=== PATIENT | female | born 1975 | race Caucasian/White ===

== ENCOUNTER 2018-01-13 10:40 | Outpatient (CLI) | payer MEDICAID ==
[2018-01-13 12:32] LABS: ADD UMIC YES; UR AMORPHOUS CRYSTAL FEW /HPF (NONE SEEN); UR ASCORBIC ACID NEGATIVE (NEGATIVE); UR BACTERIA FEW /HPF (NONE SEEN); UR BILIRUBIN (Dip) NEGATIVE (NEGATIVE); UR BLOOD (Dip) NEGATIVE (NEGATIVE); UR CLARITY SLIGHTLY CLOUDY (CLEAR); UR COLOR YELLOW (YELLOW); UR GLUCOSE (Dip) NEGATIVE (NEGATIVE); UR KETONES (Dip) NEGATIVE (NEGATIVE); UR LEUKOCYTE ESTERASE (Dip) 3+ Leu/ul (NEGATIVE); UR NITRITE (Dip) NEGATIVE (NEGATIVE); UR RBC 9 /HPF (0-5); UR SPECIFIC GRAVITY (Dip) 1.008 (1.003-1.030); UR SQUAMOUS EPITHELIAL CELL FEW /HPF (FEW); UR TOTAL PROTEIN (Dip) NEGATIVE (NEGATIVE); UR UROBILINOGEN (Dip) NEGATIVE (NEGATIVE); UR WBC 7 /HPF (0-5)
== END 2018-01-13 13:35 | disposition home or self-care (01) ==
LOC: OBT 10:40 → L-D 10:42 → OBT 13:35
DX: O23.43 Unspecified infection of urinary tract in pregnancy, third trimester (principal); Z3A.33 33 weeks gestation of pregnancy
CPT/HCPCS: 76817; 81001

== ENCOUNTER 2018-02-09 13:12 | Inpatient (IN) | payer MEDICAID ==
[2018-02-09] MEDS: LACTATED RINGER'S 1,000 ML IV ×2 (15:14→23:41)
[2018-02-09] MEDS ORDERED: ONDANSETRON 4 MG INJ IV (18:30)
[2018-02-09] MEDS ORDERED: MEPERIDINE 25 MG INJ IV (18:30)
[2018-02-09] MEDS ORDERED: TERBUTALINE 1 ML (20:01)
[2018-02-09] MEDS: TERBUTALINE 1 MG/ML INJ SC (22:32)
[2018-02-09] MEDS: metFORMIN 500 MG TAB PO (22:32)
[2018-02-09 23:44] LABS: ADD MAN DIFF? NO
[2018-02-09 23:46] LABS: BASOPHILS % 0.3 % (0.0-2.0); EOSINOPHILS % 0.4 % (0.0-7.0); HEMATOCRIT 33.4 % (37.0-47.0); HEMOGLOBIN 11.7 g/dl (12.0-16.0); LYMPHOCYTES # 1.3 10^3/ul (0.8-2.9); LYMPHOCYTES % 17.7 % (15.0-51.0); MEAN CORPUSCULAR HEMOGLOBIN 32.8 pg (29.0-33.0); MEAN CORPUSCULAR VOLUME 93.6 fl (82.0-101.0); MONOCYTE # 0.4 10^3/ul (0.3-0.9); MONOCYTES % 4.9 % (0.0-11.0); NEUTROPHIL # 5.7 10^3/ul (1.6-7.5); NEUTROPHILS % 75.9 % (39.0-77.0); PLATELET COUNT 186 10^3/UL (140-415); RED BLOOD COUNT 3.57 10^6/ul (4.20-5.40); RED CELL DISTRIBUTION WIDTH 12.4 % (11.5-14.5)
[2018-02-09 23:46] LABS: WHITE BLOOD COUNT 7.6 10^3/ul (4.8-10.8)
[2018-02-10 00:13] LABS: GLUCOSE 144 mg/dl (70-220)
[2018-02-10 00:26] LABS: INR 0.99; PARTIAL THROMBOPLASTIN TIME 24.1 Sec (25.0-35.0); PROTIME 13.2 Sec (11.9-14.9)
[2018-02-10 00:44] LABS: HEPATITIS B SURFACE ANTIGEN NEGATIVE (NEGATIVE)
[2018-02-10] MEDS: LACTATED RINGER'S 1,000 ML IV ×5 (06:59→19:51)
[2018-02-10] MEDS ORDERED: CEFAZOLIN 2 GM/50 ML (PMX) 50 ML IVPB (08:30)
[2018-02-10] MEDS: LACTATED RINGER'S 500 ML IV (13:55)
[2018-02-10] MEDS ORDERED: BUPIVACAINE 0.75%/DEXT (SPINAL) 2 ML INJ (14:39)
[2018-02-10] MEDS ORDERED: PHENYLephrine (100 MCG/ML) 5ML SYG ×3 (14:39→16:11)
[2018-02-10] MEDS ORDERED: morphine SULFATE/PF (10 MG/10 ML) INJ (14:39)
[2018-02-10] MEDS ORDERED: FENTAnyl 50 MCG/ML VIAL (14:39)
[2018-02-10] MEDS: CEFAZOLIN 2 GM/50 ML (PMX) 50 ML IVPB ×3 (14:41→21:57)
[2018-02-10 14:58] LABS: RAPID PLASMA REAGIN NONREACTIVE (NR)
[2018-02-10] MEDS ORDERED: DEXAMETHASONE 4 MG/ML 1 ML INJ (15:00)
[2018-02-10] MEDS ORDERED: FAMOTIDINE 20 MG INJ (15:00)
[2018-02-10] MEDS ORDERED: OXYTOCIN 30 UNITS/LR 500 ML IV ×2 (15:13→18:30)
[2018-02-10] MEDS ORDERED: ZOLPIDEM 5 MG TAB PO (16:00)
[2018-02-10] MEDS ORDERED: ONDANSETRON 4 MG INJ IV (16:00)
[2018-02-10] MEDS ORDERED: NALOXONE (0.4 MG/ML) INJ IV (16:00)
[2018-02-10] MEDS ORDERED: HYDROmorphONE 0.5 MG/0.5 ML SYG IV ×4 (16:00→23:30)
[2018-02-10] MEDS ORDERED: NORepinephrine 4 MG INJ (18:36)
[2018-02-10 18:50] LABS: ADD MAN DIFF? NO
[2018-02-10 18:53] LABS: BASOPHILS % 0.2 % (0.0-2.0); EOSINOPHILS % 0.2 % (0.0-7.0); HEMATOCRIT 30.9 % (37.0-47.0); HEMOGLOBIN 10.4 g/dl (12.0-16.0); LYMPHOCYTES # 1.6 10^3/ul (0.8-2.9); LYMPHOCYTES % 8.8 % (15.0-51.0); MEAN CORPUSCULAR HGB CONC 33.7 g/dl (32.0-37.0); MEAN CORPUSCULAR VOLUME 98.1 fl (82.0-101.0); MEAN PLATELET VOLUME 11.7 fl (7.4-10.4); MONOCYTE # 0.3 10^3/ul (0.3-0.9); MONOCYTES % 1.6 % (0.0-11.0); NEUTROPHIL # 16.3 10^3/ul (1.6-7.5); NEUTROPHILS % 88.2 % (39.0-77.0); PLATELET COUNT 236 10^3/UL (140-415); RED BLOOD COUNT 3.15 10^6/ul (4.20-5.40); RED CELL DISTRIBUTION WIDTH 12.9 % (11.5-14.5)
[2018-02-10 18:53] LABS: WHITE BLOOD COUNT 18.5 10^3/ul (4.8-10.8)
[2018-02-10] MEDS: OXYTOCIN 30 UNITS/LR 500 ML IV (19:08)
[2018-02-10 19:12] LABS: ALANINE AMINOTRANSFERASE 38 IU/L (13-69); ALBUMIN 2.9 g/dl (3.3-4.9); ALKALINE PHOSPHATASE 151 IU/L (42-121); ANION GAP 16 (8-16); ASPARTATE AMINO TRANSFERASE 34 IU/L (15-46); BILIRUBIN,INDIRECT 0.4 mg/dl (0-1.1); BILIRUBIN,TOTAL 0.4 mg/dl (0.2-1.3); BLOOD UREA NITROGEN 7 mg/dl (7-20); CALCIUM 8.2 mg/dl (8.4-10.2); CARBON DIOXIDE 17 mmol/L (21-31); CHLORIDE 106 mmol/L (97-110); CREATININE 0.73 mg/dl (0.44-1.00); GLUCOSE 210 mg/dl (70-220); POTASSIUM 3.9 mmol/L (3.5-5.1); SODIUM 135 mmol/L (135-144); TOTAL PROTEIN 5.8 g/dl (6.1-8.1)
[2018-02-10] MEDS: KETOROLAC 30 MG INJ IV (19:52)
[2018-02-10] MEDS: IOHEXOL 100 ML (20:39)
[2018-02-10] MEDS: SOD CHLORIDE 0.9% 100 ML (21:04)
[2018-02-10] MEDS: IOHEXOL 350MG/ML 50 ML BTL (21:11)
[2018-02-10 21:22] LABS: HEMATOCRIT 23.1 % (37.0-47.0); HEMOGLOBIN 7.8 g/dl (12.0-16.0)
[2018-02-10] MEDS ORDERED: LIDOCAINE 1% (MDV) 20 ML INJ (21:59)
[2018-02-10] MEDS ORDERED: MIDAZOLAM 1 MG/ML 2 ML INJ (21:59)
[2018-02-10] MEDS ORDERED: SUCCINYLCHOLINE CHLORIDE 100 MG/5 ML SYG IV (21:59)
[2018-02-10] MEDS ORDERED: ETOMIDATE 20 MG INJ (21:59)
[2018-02-10 22:14] LABS: IMMEDIATE SPIN CROSSMATCH 1
[2018-02-10 22:34] LABS: INR 1.04; PROTIME 13.7 Sec (11.9-14.9); PT RATIO 1.1
[2018-02-10 22:35] LABS: PARTIAL THROMBOPLASTIN TIME 22.9 Sec (25.0-35.0)
[2018-02-10 22:50] LABS: IMMEDIATE SPIN CROSSMATCH 1 6
[2018-02-10] MEDS ORDERED: METHYLERGONOVINE 0.2 MG INJ (22:54)
[2018-02-10] MEDS: METHYLERGONOVINE 0.2 MG INJ IM (23:03)
[2018-02-10] MEDS ORDERED: FUROSEMIDE 20 MG INJ (23:04)
[2018-02-10 23:24] LABS: HIV 1&2 ANTIBODY NEGATIVE (NEGATIVE)
[2018-02-10 23:32] LABS: HEPATITIS C VIRAL ANTIBODY NEGATIVE (NEGATIVE)
[2018-02-11] MEDS ORDERED: METOCLOPRAMIDE 10 MG INJ (00:02)
[2018-02-11] MEDS ORDERED: SUGAMMADEX SODIUM 200 MG/2 ML VIAL IV (00:02)
[2018-02-11 00:10] LABS: ADD MAN DIFF? NO
[2018-02-11 00:15] LABS: ABNORMAL IP MESSAGE 1; BASOPHILS % 0.1 % (0.0-2.0); HEMATOCRIT 33.9 % (37.0-47.0); HEMOGLOBIN 11.4 g/dl (12.0-16.0); LYMPHOCYTES # 0.4 10^3/ul (0.8-2.9); LYMPHOCYTES % 2.9 % (15.0-51.0); MEAN CORPUSCULAR HEMOGLOBIN 31.5 pg (29.0-33.0); MEAN CORPUSCULAR HGB CONC 33.6 g/dl (32.0-37.0); MEAN CORPUSCULAR VOLUME 93.6 fl (82.0-101.0); MEAN PLATELET VOLUME 12.4 fl (7.4-10.4); MONOCYTE # 0.6 10^3/ul (0.3-0.9); MONOCYTES % 4.1 % (0.0-11.0); NEUTROPHIL # 12.9 10^3/ul (1.6-7.5); NEUTROPHILS % 92.3 % (39.0-77.0); RED BLOOD COUNT 3.62 10^6/ul (4.20-5.40); RED CELL DISTRIBUTION WIDTH 13.5 % (11.5-14.5)
[2018-02-11 00:30] LABS: PLATELET COUNT 122 10^3/UL (140-415)
[2018-02-11 00:31] LABS: POSITIVE DIFF @See below
[2018-02-11 00:34] LABS: INR 0.94; PROTIME 12.7 Sec (11.9-14.9)
[2018-02-11] MEDS: VANCOMYCIN 1 GM (PMX) 250 ML IVPB (01:15)
[2018-02-11 06:34] LABS: ADD MAN DIFF? NO
[2018-02-11 06:42] LABS: WHITE BLOOD COUNT 11.3 10^3/ul (4.8-10.8)
[2018-02-11 06:42] LABS: BASOPHILS % 0.1 % (0.0-2.0); HEMATOCRIT 30.3 % (37.0-47.0); HEMOGLOBIN 10.5 g/dl (12.0-16.0); LYMPHOCYTES # 0.8 10^3/ul (0.8-2.9); MEAN CORPUSCULAR HEMOGLOBIN 31.7 pg (29.0-33.0); MEAN CORPUSCULAR HGB CONC 34.7 g/dl (32.0-37.0); MEAN CORPUSCULAR VOLUME 91.5 fl (82.0-101.0); MEAN PLATELET VOLUME 11.6 fl (7.4-10.4); MONOCYTE # 0.6 10^3/ul (0.3-0.9); MONOCYTES % 5.7 % (0.0-11.0); NEUTROPHIL # 9.8 10^3/ul (1.6-7.5); NEUTROPHILS % 86.8 % (39.0-77.0); PLATELET COUNT 145 10^3/UL (140-415); RED BLOOD COUNT 3.31 10^6/ul (4.20-5.40); RED CELL DISTRIBUTION WIDTH 14.1 % (11.5-14.5)
[2018-02-11 06:57] LABS: ANION GAP 13 (8-16); BLOOD UREA NITROGEN 7 mg/dl (7-20); CALCIUM 8.9 mg/dl (8.4-10.2); CARBON DIOXIDE 26 mmol/L (21-31); CHLORIDE 103 mmol/L (97-110); CREATININE 0.73 mg/dl (0.44-1.00); GLUCOSE 124 mg/dl (70-220); POTASSIUM 4.5 mmol/L (3.5-5.1); SODIUM 137 mmol/L (135-144)
[2018-02-11] MEDS: KETOROLAC 30 MG INJ IV (08:20)
[2018-02-11] MEDS: LACTATED RINGER'S 1,000 ML IV ×3 (11:07→18:53)
[2018-02-11 16:29] LABS: HEMATOCRIT 27.2 % (37.0-47.0); HEMOGLOBIN 9.3 g/dl (12.0-16.0)
[2018-02-11] MEDS: HYDROCODONE/APAP (5/325) TAB PO (16:48)
[2018-02-11] MEDS ORDERED: HYDROCODONE/APAP (5/325) TAB PO (18:30)
[2018-02-11] MEDS: BISACODYL 10 MG SUPP PR ×2 (18:30→19:04)
[2018-02-11] MEDS ORDERED: KETOROLAC 30 MG INJ IV (18:30)
[2018-02-11] MEDS ORDERED: SENNA TAB PO (18:30)
[2018-02-11] MEDS ORDERED: MAGNESIUM HYDROXIDE 30ML CUP PO (18:30)
[2018-02-11] MEDS ORDERED: IBUPROFEN 600 MG TAB PO (18:30)
[2018-02-11] MEDS ORDERED: METOCLOPRAMIDE 10 MG INJ IV (18:30)
[2018-02-11] MEDS ORDERED: MISOPROSTOL 200 MCG TAB PR (18:30)
[2018-02-11] MEDS ORDERED: CARBOPROST 250 MCG INJ IM (18:30)
[2018-02-11] MEDS ORDERED: ACETAMINOPHEN (10 MG/ML) IV SYG IV* (18:30)
[2018-02-11] MEDS ORDERED: METHYLERGONOVINE 0.2 MG INJ IM (18:30)
[2018-02-11] MEDS ORDERED: OXYTOCIN 30 UNITS/LR 500 ML IV (18:30)
[2018-02-11] MEDS: KETOROLAC 60 MG INJ IM (18:41)
[2018-02-11] MEDS: FAMOTIDINE 20 MG INJ IV (18:48)
[2018-02-11 19:00] LABS: ADD MAN DIFF? NO
[2018-02-11] MEDS ORDERED: ACETAMINOPHEN 1000MG/100ML IV 100 ML IVPB (19:00)
[2018-02-11] MEDS ORDERED: GLUCAGON 1 MG INJ IM (19:00)
[2018-02-11] MEDS ORDERED: GLUCOSE GEL 15 GRAM TUBE PO ×2 (19:00)
[2018-02-11] MEDS ORDERED: DEXTROSE 50% 50 ML SYRINGE IV ×2 (19:00)
[2018-02-11] MEDS ORDERED: GLUCOSE GEL 15 GRAM TUBE BUCCAL (19:00)
[2018-02-11 19:02] LABS: EOSINOPHILS # 0.1 10^3/ul (0.0-0.5); HEMATOCRIT 24.3 % (37.0-47.0); HEMOGLOBIN 8.5 g/dl (12.0-16.0); LYMPHOCYTES # 1.1 10^3/ul (0.8-2.9); MEAN CORPUSCULAR HEMOGLOBIN 31.7 pg (29.0-33.0); MEAN CORPUSCULAR VOLUME 90.7 fl (82.0-101.0); MEAN PLATELET VOLUME 10.7 fl (7.4-10.4); MONOCYTE # 0.5 10^3/ul (0.3-0.9); MONOCYTES % 4.8 % (0.0-11.0); NEUTROPHIL # 7.8 10^3/ul (1.6-7.5); NEUTROPHILS % 81.8 % (39.0-77.0); PLATELET COUNT 142 10^3/UL (140-415); RED BLOOD COUNT 2.68 10^6/ul (4.20-5.40); RED CELL DISTRIBUTION WIDTH 14.8 % (11.5-14.5)
[2018-02-11 19:02] LABS: WHITE BLOOD COUNT 9.5 10^3/ul (4.8-10.8)
[2018-02-11 19:19] LABS: ALANINE AMINOTRANSFERASE 34 IU/L (13-69); ALBUMIN 2.6 g/dl (3.3-4.9); ALKALINE PHOSPHATASE 100 IU/L (42-121); ANION GAP 10 (8-16); ASPARTATE AMINO TRANSFERASE 39 IU/L (15-46); BILIRUBIN,INDIRECT 0.6 mg/dl (0-1.1); BILIRUBIN,TOTAL 0.6 mg/dl (0.2-1.3); BLOOD UREA NITROGEN 6 mg/dl (7-20); CALCIUM 8.3 mg/dl (8.4-10.2); CARBON DIOXIDE 26 mmol/L (21-31); CHLORIDE 105 mmol/L (97-110); CREATININE 0.67 mg/dl (0.44-1.00); GLUCOSE 102 mg/dl (70-220); POTASSIUM 3.6 mmol/L (3.5-5.1); SODIUM 137 mmol/L (135-144); TOTAL PROTEIN 5.2 g/dl (6.1-8.1)
[2018-02-11] MEDS ORDERED: CIPROFLOXACIN 400MG/D5W 200 ML IVPB (19:30)
[2018-02-11] MEDS: metFORMIN (XR) 500 MG TAB PO (19:31)
[2018-02-11] MEDS: CLINDAMYCIN 300 MG CAP PO (19:31)
[2018-02-11] MEDS: ACCU-CHEK XX (19:33)
[2018-02-11] MEDS: CIPROFLOXACIN 400MG/D5W 200 ML IVPB (20:50)
[2018-02-11] MEDS: CEFAZOLIN 2 GM/50 ML (PMX) 50 ML IVPB (22:23)
[2018-02-12] MEDS: OXYCODONE/ACETAMINOPHEN (5/325) TAB PO (00:09)
[2018-02-12] MEDS: CLINDAMYCIN 300 MG CAP PO ×3 (00:09→11:20)
[2018-02-12] MEDS: LACTATED RINGER'S 1,000 ML IV ×5 (02:14→13:08)
[2018-02-12 05:36] LABS: ADD MAN DIFF? NO
[2018-02-12] MEDS: ACCU-CHEK XX ×2 (06:29→09:35)
[2018-02-12] MEDS: CEFAZOLIN 2 GM/50 ML (PMX) 50 ML IVPB ×4 (06:29→22:32)
[2018-02-12 06:59] LABS: WHITE BLOOD COUNT 10.6 10^3/ul (4.8-10.8)
[2018-02-12 06:59] LABS: BASOPHILS % 0.2 % (0.0-2.0); EOSINOPHILS # 0.2 10^3/ul (0.0-0.5); EOSINOPHILS % 1.7 % (0.0-7.0); HEMATOCRIT 23.6 % (37.0-47.0); LYMPHOCYTES # 1.2 10^3/ul (0.8-2.9); LYMPHOCYTES % 11.3 % (15.0-51.0); MEAN CORPUSCULAR HEMOGLOBIN 31.5 pg (29.0-33.0); MEAN CORPUSCULAR HGB CONC 33.9 g/dl (32.0-37.0); MEAN CORPUSCULAR VOLUME 92.9 fl (82.0-101.0); MEAN PLATELET VOLUME 11.4 fl (7.4-10.4); MONOCYTE # 0.5 10^3/ul (0.3-0.9); MONOCYTES % 4.5 % (0.0-11.0); NEUTROPHIL # 8.7 10^3/ul (1.6-7.5); NEUTROPHILS % 81.8 % (39.0-77.0); PLATELET COUNT 148 10^3/UL (140-415); RED BLOOD COUNT 2.54 10^6/ul (4.20-5.40); RED CELL DISTRIBUTION WIDTH 14.8 % (11.5-14.5)
[2018-02-12] MEDS: CIPROFLOXACIN 400MG/D5W 200 ML IVPB ×2 (08:50→21:01)
[2018-02-12] MEDS: metFORMIN (XR) 500 MG TAB PO (08:50)
[2018-02-12] MEDS: FAMOTIDINE 20 MG INJ IV (08:50)
[2018-02-12] MEDS ORDERED: BISACODYL 10 MG SUPP PR (10:30)
[2018-02-12] MEDS ORDERED: HYDROCODONE/APAP (5/325) TAB PO ×2 (13:30→18:30)
[2018-02-12] MEDS ORDERED: MISOPROSTOL 200 MCG TAB PR (13:30)
[2018-02-12] MEDS: BISACODYL 10 MG SUPP PR (13:41)
[2018-02-12] MEDS: metroNIDAZOLE 500 MG TAB PO ×2 (13:47→22:32)
[2018-02-12] MEDS: IBUPROFEN 800 MG TAB PO ×2 (14:48→22:32)
[2018-02-12] MEDS ORDERED: CIPROFLOXACIN 400MG/D5W 200 ML IVPB (15:00)
[2018-02-12] MEDS: SENNA/DOCUSATE NA (8.6MG/50MG) TAB PO (21:01)
[2018-02-13] MEDS: IBUPROFEN 800 MG TAB PO ×3 (05:32→21:55)
[2018-02-13] MEDS: CEFAZOLIN 2 GM/50 ML (PMX) 50 ML IVPB (05:32)
[2018-02-13] MEDS: metroNIDAZOLE 500 MG TAB PO ×3 (05:32→21:55)
[2018-02-13] MEDS: ACCU-CHEK XX (07:00)
[2018-02-13] MEDS: SENNA/DOCUSATE NA (8.6MG/50MG) TAB PO ×2 (08:33→20:33)
[2018-02-13] MEDS: CIPROFLOXACIN 400MG/D5W 200 ML IVPB ×2 (08:33→20:33)
[2018-02-13] MEDS ORDERED: DIPHTH/TET/ACEL PERTUSS (ADULT) 0.5 ML VIAL IM* (09:00)
[2018-02-13 11:27] LABS: ADD MAN DIFF? NO
[2018-02-13 11:34] LABS: WHITE BLOOD COUNT 11.4 10^3/ul (4.8-10.8)
[2018-02-13 11:34] LABS: BASOPHILS % 0.1 % (0.0-2.0); EOSINOPHILS # 0.1 10^3/ul (0.0-0.5); EOSINOPHILS % 1.2 % (0.0-7.0); HEMATOCRIT 24.2 % (37.0-47.0); HEMOGLOBIN 8.1 g/dl (12.0-16.0); LYMPHOCYTES % 8.9 % (15.0-51.0); MEAN CORPUSCULAR HEMOGLOBIN 31.5 pg (29.0-33.0); MEAN CORPUSCULAR HGB CONC 33.5 g/dl (32.0-37.0); MEAN CORPUSCULAR VOLUME 94.2 fl (82.0-101.0); MEAN PLATELET VOLUME 10.4 fl (7.4-10.4); MONOCYTE # 0.5 10^3/ul (0.3-0.9); MONOCYTES % 4.8 % (0.0-11.0); NEUTROPHIL # 9.5 10^3/ul (1.6-7.5); NEUTROPHILS % 83.2 % (39.0-77.0); PLATELET COUNT 194 10^3/UL (140-415); RED BLOOD COUNT 2.57 10^6/ul (4.20-5.40); RED CELL DISTRIBUTION WIDTH 14.6 % (11.5-14.5)
[2018-02-13] MEDS ORDERED: DEXTROSE 50% 50 ML SYRINGE IV ×2 (15:00)
[2018-02-13] MEDS ORDERED: GLUCOSE GEL 15 GRAM TUBE BUCCAL (15:00)
[2018-02-13] MEDS ORDERED: GLUCOSE GEL 15 GRAM TUBE PO ×2 (15:00)
[2018-02-13] MEDS ORDERED: GLUCAGON 1 MG INJ IM (15:00)
[2018-02-13] MEDS: NA PHOSPHATE/BIPHOS 133 ML ENEMA PR (18:01)
[2018-02-13] MEDS: LANOLIN 7 GM TUBE TOP (18:01)
[2018-02-13] MEDS: metFORMIN (XR) 500 MG TAB PO (18:03)
[2018-02-13] MEDS ORDERED: metFORMIN (XR) 500 MG TAB PO (21:00)
[2018-02-14] MEDS: OXYCODONE/ACETAMINOPHEN (5/325) TAB PO (01:15)
[2018-02-14] MEDS: metroNIDAZOLE 500 MG TAB PO ×3 (05:38→21:58)
[2018-02-14] MEDS: IBUPROFEN 800 MG TAB PO ×3 (05:38→21:58)
[2018-02-14] MEDS: ACCU-CHEK XX ×4 (08:16→20:05)
[2018-02-14] MEDS: SENNA/DOCUSATE NA (8.6MG/50MG) TAB PO ×2 (08:32→21:00)
[2018-02-14] MEDS: metFORMIN (XR) 500 MG TAB PO ×2 (08:32→17:47)
[2018-02-14] MEDS: CIPROFLOXACIN 400MG/D5W 200 ML IVPB ×2 (09:08→21:00)
[2018-02-14 15:00] LABS: ADD MAN DIFF? NO
[2018-02-14 15:09] LABS: BASOPHILS % 0.3 % (0.0-2.0); EOSINOPHILS # 0.3 10^3/ul (0.0-0.5); EOSINOPHILS % 3.2 % (0.0-7.0); HEMATOCRIT 25.2 % (37.0-47.0); HEMOGLOBIN 8.5 g/dl (12.0-16.0); LYMPHOCYTES % 9.5 % (15.0-51.0); MEAN CORPUSCULAR HEMOGLOBIN 32.2 pg (29.0-33.0); MEAN CORPUSCULAR HGB CONC 33.7 g/dl (32.0-37.0); MEAN CORPUSCULAR VOLUME 95.5 fl (82.0-101.0); MEAN PLATELET VOLUME 9.9 fl (7.4-10.4); MONOCYTE # 0.5 10^3/ul (0.3-0.9); MONOCYTES % 4.6 % (0.0-11.0); NEUTROPHIL # 8.1 10^3/ul (1.6-7.5); NEUTROPHILS % 80.1 % (39.0-77.0); PLATELET COUNT 263 10^3/UL (140-415); RED BLOOD COUNT 2.64 10^6/ul (4.20-5.40); RED CELL DISTRIBUTION WIDTH 14.5 % (11.5-14.5)
[2018-02-14 15:09] LABS: WHITE BLOOD COUNT 10.2 10^3/ul (4.8-10.8)
[2018-02-14] MEDS ORDERED: VITAMIN A & D 5 GM OINT PACKET TOP (18:23)
[2018-02-14] MEDS: TRIMETHOPRIM/SULFAMETHOX (DS) TAB PO (21:58)
[2018-02-14] MEDS ORDERED: metroNIDAZOLE 500 MG TAB PO (22:00)
[2018-02-15] MEDS: metroNIDAZOLE 500 MG TAB PO ×2 (06:00→14:13)
[2018-02-15] MEDS: IBUPROFEN 800 MG TAB PO ×2 (06:00→14:13)
[2018-02-15] MEDS: CIPROFLOXACIN 500 MG TAB PO ×2 (06:00→18:20)
[2018-02-15] MEDS: DIPHTH/TET/ACEL PERTUSS (ADULT) 0.5 ML VIAL IM* (08:26)
[2018-02-15] MEDS: TRIMETHOPRIM/SULFAMETHOX (DS) TAB PO (08:59)
[2018-02-15] MEDS: metFORMIN (XR) 500 MG TAB PO ×2 (08:59→18:20)
[2018-02-15] MEDS: SENNA/DOCUSATE NA (8.6MG/50MG) TAB PO (08:59)
[2018-02-15 11:49] LABS: ADD MAN DIFF? NO
[2018-02-15 11:51] LABS: BASOPHILS % 0.2 % (0.0-2.0); EOSINOPHILS # 0.2 10^3/ul (0.0-0.5); EOSINOPHILS % 1.9 % (0.0-7.0); HEMATOCRIT 23.9 % (37.0-47.0); HEMOGLOBIN 7.9 g/dl (12.0-16.0); LYMPHOCYTES # 0.9 10^3/ul (0.8-2.9); LYMPHOCYTES % 9.6 % (15.0-51.0); MEAN CORPUSCULAR HEMOGLOBIN 31.2 pg (29.0-33.0); MEAN CORPUSCULAR HGB CONC 33.1 g/dl (32.0-37.0); MEAN CORPUSCULAR VOLUME 94.5 fl (82.0-101.0); MEAN PLATELET VOLUME 9.8 fl (7.4-10.4); MONOCYTE # 0.5 10^3/ul (0.3-0.9); MONOCYTES % 5.1 % (0.0-11.0); NEUTROPHIL # 7.6 10^3/ul (1.6-7.5); NEUTROPHILS % 79.9 % (39.0-77.0); PLATELET COUNT 266 10^3/UL (140-415); RED BLOOD COUNT 2.53 10^6/ul (4.20-5.40); RED CELL DISTRIBUTION WIDTH 14.3 % (11.5-14.5)
[2018-02-15 11:51] LABS: WHITE BLOOD COUNT 9.5 10^3/ul (4.8-10.8)
== END 2018-02-15 19:00 | disposition home or self-care (01) | DRG 765 ==
LOC: OBT 13:12 → ICU 02-11 00:40 → PP1 02-12 14:29 → L-D 13:13 → OBT 18:20 → L-D 02-10 22:19
PROVIDERS: Obstetrics & Gynecology
PROC: 10D00Z1 Extraction of Products of Conception, Low, Open Approach (ICD-10-PCS; principal; 2018-02-10 15:30)
PROC: 0UL70ZZ Occlusion of Bilateral Fallopian Tubes, Open Approach (ICD-10-PCS; 2018-02-10 15:30)
DX: O34.211 Maternal care for low transverse scar from previous cesarean delivery (principal); O72.2 Delayed and secondary postpartum hemorrhage; O24.429 Gestational diabetes mellitus in childbirth, unspecified control; Z30.2 Encounter for sterilization; Z3A.37 37 weeks gestation of pregnancy; Z37.0 Single live birth
CPT/HCPCS: 36430; 71045; 75635; 80048; 80053; 82947; 82962; 85014; 85018; 85025; 85610; 85730; 86592; 86703; 86803; 86850; 86900; 86901; 86920; 87340; 88302; 93005; 99464

== ENCOUNTER 2018-11-18 15:28 | Inpatient (IN) | payer MEDICAID ==
[2018-11-18] MEDS: ASPIRIN 325 MG TAB PO (16:13)
[2018-11-18] MEDS: SOD CHLORIDE 0.9% 1,000 ML IV ×2 (16:13→17:56)
[2018-11-18 16:28] LABS: ADD MAN DIFF? NO
[2018-11-18 16:32] LABS: BASOPHILS % 0.4 % (0.0-2.0); EOSINOPHILS # 0.4 10^3/ul (0.0-0.5); EOSINOPHILS % 4.7 % (0.0-7.0); HEMATOCRIT 38.7 % (37.0-47.0); LYMPHOCYTES # 2.7 10^3/ul (0.8-2.9); LYMPHOCYTES % 31.3 % (15.0-51.0); MEAN CORPUSCULAR HGB CONC 33.6 g/dl (32.0-37.0); MEAN CORPUSCULAR VOLUME 92.4 fl (82.0-101.0); MEAN PLATELET VOLUME 10.7 fl (7.4-10.4); MONOCYTE # 0.6 10^3/ul (0.3-0.9); NEUTROPHIL # 4.8 10^3/ul (1.6-7.5); NEUTROPHILS % 56.2 % (39.0-77.0); PLATELET COUNT 292 10^3/UL (140-415); RED BLOOD COUNT 4.19 10^6/ul (4.20-5.40); RED CELL DISTRIBUTION WIDTH 12.5 % (11.5-14.5)
[2018-11-18 16:32] LABS: WHITE BLOOD COUNT 8.5 10^3/ul (4.8-10.8)
[2018-11-18 16:49] LABS: ALANINE AMINOTRANSFERASE 25 IU/L (13-69); ALBUMIN 4.2 g/dl (3.3-4.9); ALBUMIN/GLOBULIN RATIO 1.16; ALKALINE PHOSPHATASE 83 IU/L (42-121); ANION GAP 5 (5-13); ASPARTATE AMINO TRANSFERASE 26 IU/L (15-46); BILIRUBIN,INDIRECT 0.1 mg/dl (0-1.1); BILIRUBIN,TOTAL 0.1 mg/dl (0.2-1.3); BLOOD UREA NITROGEN 12 mg/dl (7-20); CALCIUM 9.1 mg/dl (8.4-10.2); CARBON DIOXIDE 26 mmol/L (21-31); CHLORIDE 110 mmol/L (97-110); CHOL/HDL RATIO 3.9 RATIO; CHOLESTEROL 193 mg/dl (100-200); CREATININE 0.81 mg/dl (0.44-1.00); Estimated GFR > 60 mL/min (>60); GLUCOSE 111 mg/dl (70-220); HDL CHOLESTEROL 49 mg/dl (34-88); LDL CHOLESTEROL,CALCULATED 94 mg/dl; POTASSIUM 3.7 mmol/L (3.5-5.1); SODIUM 141 mmol/L (135-144); TOTAL PROTEIN 7.8 g/dl (6.1-8.1); TRIGLYCERIDES 249 mg/dl (0-149)
[2018-11-18 16:54] LABS: INR 0.87; PROTIME 11.9 Sec (11.9-14.9); PT RATIO 0.9
[2018-11-18 17:00] LABS: TROPONIN-I < 0.012 ng/ml (0.000-0.120)
[2018-11-18] MEDS: IOHEXOL 100 ML (17:11)
[2018-11-18] MEDS: SOD CHLORIDE 0.9% 100 ML (17:11)
[2018-11-18 17:13] LABS: HEMOGLOBIN A1C 5.3 % (0-5.9)
[2018-11-18] MEDS ORDERED: ONDANSETRON 4 MG INJ IV ×2 (18:00→18:30)
[2018-11-18] MEDS ORDERED: ACETAMINOPHEN 325 MG TAB PO (18:00)
[2018-11-18] MEDS ORDERED: DEXTROSE 5%-0.45% NACL 1,000 ML IV (18:02)
[2018-11-18] MEDS ORDERED: NACL 0.9% 3 ML SYG IV (18:30)
[2018-11-18] MEDS ORDERED: MAGNESIUM HYDROXIDE 30ML CUP PO (18:30)
[2018-11-18] MEDS ORDERED: DOCUSATE SODIUM 100 MG CAP PO (18:30)
[2018-11-18] MEDS: METOCLOPRAMIDE 10 MG INJ IV (18:31)
[2018-11-18] MEDS: HYDROmorphONE 1 MG/ML SYG IV (18:32)
[2018-11-18] MEDS: DIPHENHYDRAMINE 50 MG INJ IV (18:32)
[2018-11-18] MEDS ORDERED: LORAZEPAM 2 MG INJ IV (19:00)
[2018-11-18] MEDS: predniSONE 20 MG TAB PO (20:41)
[2018-11-18] MEDS: ATORVASTATIN 40 MG TAB PO (20:41)
[2018-11-18] MEDS: VALACYCLOVIR 500 MG TAB PO (23:00)
[2018-11-19 06:19] LABS: ADD MAN DIFF? NO
[2018-11-19 06:22] LABS: BASOPHILS % 0.4 % (0.0-2.0); HEMATOCRIT 40.1 % (37.0-47.0); HEMOGLOBIN 13.5 g/dl (12.0-16.0); LYMPHOCYTES # 0.7 10^3/ul (0.8-2.9); LYMPHOCYTES % 13.9 % (15.0-51.0); MEAN CORPUSCULAR HEMOGLOBIN 30.8 pg (29.0-33.0); MEAN CORPUSCULAR HGB CONC 33.7 g/dl (32.0-37.0); MEAN CORPUSCULAR VOLUME 91.6 fl (82.0-101.0); MEAN PLATELET VOLUME 10.6 fl (7.4-10.4); MONOCYTE # 0.1 10^3/ul (0.3-0.9); MONOCYTES % 1.5 % (0.0-11.0); NEUTROPHIL # 4.4 10^3/ul (1.6-7.5); NEUTROPHILS % 83.6 % (39.0-77.0); PLATELET COUNT 299 10^3/UL (140-415); RED BLOOD COUNT 4.38 10^6/ul (4.20-5.40); RED CELL DISTRIBUTION WIDTH 12.3 % (11.5-14.5)
[2018-11-19 06:22] LABS: WHITE BLOOD COUNT 5.3 10^3/ul (4.8-10.8)
[2018-11-19] MEDS: ARTIFICIAL TEARS 15 ML OPH BOTH EYES ×3 (06:51→19:48)
[2018-11-19 08:09] LABS: ANION GAP 7 (5-13); BLOOD UREA NITROGEN 10 mg/dl (7-20); CALCIUM 8.9 mg/dl (8.4-10.2); CARBON DIOXIDE 21 mmol/L (21-31); CHLORIDE 111 mmol/L (97-110); CREATININE 0.58 mg/dl (0.44-1.00); Estimated GFR > 60 mL/min (>60); GLUCOSE 143 mg/dl (70-220); MAGNESIUM 1.8 mg/dl (1.7-2.5); POTASSIUM 4.4 mmol/L (3.5-5.1); SODIUM 139 mmol/L (135-144)
[2018-11-19] MEDS: predniSONE 20 MG TAB PO (08:21)
[2018-11-19] MEDS: VALACYCLOVIR 500 MG TAB PO ×3 (08:22→21:17)
[2018-11-19] MEDS: ACETAMINOPHEN 325 MG TAB PO (11:23)
[2018-11-19] MEDS: ATORVASTATIN 40 MG TAB PO (21:17)
[2018-11-20] MEDS: ARTIFICIAL TEARS 15 ML OPH BOTH EYES (07:35)
[2018-11-20] MEDS: VALACYCLOVIR 500 MG TAB PO ×2 (09:15→13:12)
[2018-11-20] MEDS: predniSONE 20 MG TAB PO (09:15)
[2018-11-20] MEDS: ACETAMINOPHEN 325 MG TAB PO (09:20)
== END 2018-11-20 15:00 | disposition still patient (30) | DRG 74 ==
LOC: E/R 15:28 → TEL 17:56
DX: G51.0 Bell's palsy (principal); R53.1 Weakness; F41.9 Anxiety disorder, unspecified
CPT/HCPCS: 36415; 70450; 70496; 70498; 70552; 71045; 80048; 80053; 80061; 83036; 83735; 84484; 85025; 85610; 85730; 92610; 93005; 93306; 97116; 97162; 97167; 99285-25

== ENCOUNTER 2018-12-17 18:36 | Emergency (ER) | payer MEDICAID ==
[2018-12-17] MEDS: HYDROmorphONE 1 MG/ML SYG IV (19:01)
[2018-12-17] MEDS: METOCLOPRAMIDE 10 MG INJ IV (19:01)
[2018-12-17] MEDS: DIPHENHYDRAMINE 50 MG INJ IV (19:01)
== END 2018-12-17 23:23 | disposition home or self-care (01) ==
LOC: E/R 18:36
DX: G43.909 Migraine, unspecified, not intractable, without status migrainosus (principal)
CPT/HCPCS: 70450; 84703; 96374; 96375; 99285-25